=== PATIENT | female | born 1985 | race American Indian/Alaskan Native ===

== ENCOUNTER 2022-05-11 01:05 | Emergency (ER) | payer OTHER ==
[2022-05-11] MEDS ORDERED: KETOROLAC 60 MG/2 ML INJ IM STA (02:39)
[2022-05-11] MEDS ORDERED: oxyCODONE /ACETAMINOPHEN 5-325MG TAB PO ONE (02:39)
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
--- NOTE | 2022-05-11 05:44 | XRay Report ---
LUMBAR SPINE 3 VIEWS INDICATION / CLINICAL INFORMATION: fall. COMPARISON: None available. FINDINGS: VERTEBRAE: No acute fracture. No significant malalignment. DISC SPACES / FACET JOINTS:No significant abnormality. PARASPINAL SOFT TISSUES:No significant abnormality. ADDITIONAL FINDINGS: None. IMPRESSION: 1. No significant degenerative changes, no acute findings. Signer Name: Anthony Michael II, MD Signed: 05/11/2022 5:39 AM Workstation Name: [id number]
--- NOTE | 2022-05-11 05:49 | XRay Report ---
RIGHT HIP 3 VIEW(S) INDICATION / CLINICAL INFORMATION: fall COMPARISON: None available. FINDINGS: BONES / JOINT(S): No acute fracture or subluxation. No significant arthritis. SOFT TISSUES: No significant abnormality. ADDITIONAL FINDINGS: None. IMPRESSION: 1. No acute pathology. No significant abnormality. Signer Name: Anthony Michael II, MD Signed: 05/11/2022 5:44 AM Workstation Name: [id number]
[2022-05-11 07:01] VITALS: BP 118/60
== END 2022-05-11 07:01 | disposition home or self-care (01) ==
LOC: ED 01:05
DX: S70.01XA Contusion of right hip, initial encounter (principal); M54.50 Low back pain, unspecified; J45.909 Unspecified asthma, uncomplicated; Z79.899 Other long term (current) drug therapy; W19.XXXA Unspecified fall, initial encounter; Y93.89 Activity, other specified; Y92.89 Other specified places as the place of occurrence of the external cause; Y99.8 Other external cause status
CPT/HCPCS: 72100; 73502; 96372; 99283; J1885